=== PATIENT | male | born 1960 | race Caucasian/White ===

== ENCOUNTER 2018-01-05 00:49 | Emergency (ER) | payer OTHER, SELFPAY ==
[2018-01-05] MEDS ORDERED: HYDROcodone/Acetaminophen 10/325 mg Tablet ONE (01:12)
== END 2018-01-05 01:15 | disposition home or self-care (01) ==
LOC: MADERS 00:49
DX: S01.81XA Laceration without foreign body of other part of head, initial encounter (principal); R55 Syncope and collapse; Z87.891 Personal history of nicotine dependence; W17.89XA Other fall from one level to another, initial encounter
CPT/HCPCS: 12011

== ENCOUNTER 2018-10-04 14:33 | Outpatient (CLI) | payer OTHER ==
--- NOTE | 2018-10-04 15:17 | RAD ---
PA AND LATERAL CHEST: Date: 10/04/18 HISTORY: COPD. COMPARISON: 03/27/09. FINDINGS: Heart size is within normal limits. There are some atherosclerotic changes of the aorta. Lungs are cl ear of any infiltrative process. IMPRESSION: No active intrathoracic disease. POS: [facility]
[2018-10-04 15:23] LABS: #Basophils 0.1 thou/uL (0.0-0.2); #Eosinphils 0.1 thou/uL (0.0-0.7); #Lymphocytes 1.1 thou/uL (1.20-3.40); #Monocytes 0.4 thou/uL (0.11-0.59); %Basophils 2.7 % (0.0-1.0); %Eosinophils 2.4 % (0.0-10.0); %Neutrophils 62.8 % (42.0-75.0); Hemoglobin 13.1 g/dL (14.0-18.0); Mean Corpuscular HGB CONC 34.2 g/dL (32.0-36.0); Mean Corpuscular Hemoglobin 30.5 pg (27.0-31.0); Mean Corpuscular Volume 89.4 fL (78.0-98.0); Mean Platelet Volume 5.5 fL (7.4-10.4); Platelet Count 430 thou/uL (130-400); RBC Distribution Width 11.3 % (11.5-14.5); White Blood Cell (WBC) Count 4.8 thou/uL (4.8-10.8)
[2018-10-04 15:24] LABS: ALT (SGPT) 42 U/L (8-55); AST (SGOT) 33 U/L (5-34); Albumin 4.6 g/dL (3.5-5.0); Alkaline Phosphatase 141 U/L (40-150); Anion Gap 13 mmol/L (10-20); BUN (Urea Nitrogen) 8 mg/dL (8.4-25.7); Bilirubin, Total 0.6 mg/dL (0.2-1.2); Calc. Creatinine Clearance 0 mL/min (70-130); Calcium 9.6 mg/dL (7.8-10.44); Carbon Dioxide 26 mmol/L (22-29); Cardiac Risk 6.2 (Less than 4.5); Chloride 103 mmol/L (98-107); Cholesterol 229 mg/dl (< 200 Desired); Estimated GFR-MDRD 84; Globulin 3.5 g/dL (2.4-3.5); Glucose 114 mg/dL (70-105); HDL Cholesterol 37 mg/dL (>60 Neg Risk); LDL Cholesterol, Calculated 133 mg/dL; Potassium 4.1 mmol/L (3.5-5.1); Protein, Total 8.1 g/dL (6.0-8.3); Sodium 138 mmol/L (136-145); Triglycerides 297 mg/dL (Less than 150)
== END 2018-10-04 14:34 | disposition home or self-care (01) ==
LOC: MADLABBHPM 14:33 → EDSTATUS 14:35
PROVIDERS: ATTEND Family Medicine
DX: J44.1 Chronic obstructive pulmonary disease with (acute) exacerbation (principal); E78.2 Mixed hyperlipidemia
CPT/HCPCS: 36415; 71046; 80053; 80061; 84443; 85025

== ENCOUNTER 2018-10-13 09:09 | Outpatient (CLI) | payer OTHER ==
--- NOTE | 2018-10-13 11:16 | CT ---
POSTCONTRAST SOFT TISSUE NECK CT: Date 10/13/18 HISTORY: Left parotid mass. COMPARISON: None. FINDINGS: Visualized brain parenchyma and orbits are unremarkable. Adequate aeration of the visualized sinuses and mastoid air cells. Aerodigestive tract is patent. No mucosal abnormality. Epiglottis has a normal caliber. Preepiglottic fat is preserved. Midline fatty raphe of the tongue is preserved. No obvious masses in the oral cavi ty. Symmetric attenuation of the submandibular glands. Appropriate attenuation of the right parotid gland . There is a heterogeneously enhancing left intraparotid mass involving the superficial and deep lobe measuring 2.6 x 2.6 cm. Grossly, the great vessels of the neck are patent. Appropriate attenuation of the sternocleidomastoid muscles. Appropriate attenuation of the thyroid gland. Upper mediastinum and lung apices are unremarkable. No evidence of lymphadenopathy by size criteria. Straightening of the normal cervical lordosis is presumably positional. 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 Lesion appears to involve both the deep and superficial l obe. Heterogeneous enhancement with areas of cystic degeneration are suspected. 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 POS: [facility]
== END 2018-10-13 09:10 | disposition home or self-care (01) ==
LOC: MADCT 09:09
PROVIDERS: ATTEND Otolaryngology Otolaryngic Allergy
DX: D37.030 Neoplasm of uncertain behavior of the parotid salivary glands (principal)
CPT/HCPCS: 36415; 70491; 82565

== ENCOUNTER 2020-07-19 10:26 | Emergency (ER) | payer OTHER | END 2020-07-19 10:54 | disposition home or self-care (01) | LOC: MADERS 10:26 | DX: K40.90 Unilateral inguinal hernia, without obstruction or gangrene, not specified as recurrent (principal); Z87.891 Personal history of nicotine dependence | CPT/HCPCS: 99283 ==

== ENCOUNTER 2021-01-01 16:10 | Emergency (ER) | payer OTHER ==
[2021-01-01 17:44] LABS: #Basophils 0.2 thou/uL (0.0-0.2); #Eosinphils 0.1 thou/uL (0.0-0.7); #Lymphocytes 1.1 thou/uL (1.20-3.40); #Monocytes 1.1 thou/uL (0.11-0.59); #Neutrophils 10.5 thou/uL (1.40-6.50); %Basophils 1.5 % (0.0-1.0); %Eosinophils 0.9 % (0.0-10.0); %Lymphocytes 8.4 % (21.0-51.0); %Monocytes 8.4 % (0.0-10.0); %Neutrophils 80.8 % (42.0-75.0); Mean Corpuscular HGB CONC 33.2 g/dL (32.0-36.0); Mean Corpuscular Volume 93.4 fL (78.0-98.0); Mean Platelet Volume 5.5 fL (7.4-10.4); Platelet Count 462 thou/uL (130-400); RBC Distribution Width 11.1 % (11.5-14.5); Red Blood Cell (RBC) Count 4.52 mill/uL (4.70-6.10); White Blood Cell (WBC) Count 13.1 thou/uL (4.8-10.8)
[2021-01-01 17:58] LABS: ALT (SGPT) 17 U/L (8-55); AST (SGOT) 16 U/L (5-34); Albumin 4.5 g/dL (3.5-5.0); Alkaline Phosphatase 119 U/L (40-110); Anion Gap 13 mmol/L (10-20); BUN (Urea Nitrogen) 9 mg/dL (8.4-25.7); Bilirubin, Total 1.7 mg/dL (0.2-1.2); Calc. Creatinine Clearance 0 mL/min (70-130); Calcium 10.3 mg/dL (7.8-10.44); Carbon Dioxide 28 mmol/L (22-29); Chloride 97 mmol/L (98-107); Globulin 3.7 g/dL (2.4-3.5); Glucose 108 mg/dL (70-105); Potassium 4.1 mmol/L (3.5-5.1); Protein, Total 8.2 g/dL (6.0-8.3); Sodium 134 mmol/L (136-145)
[2021-01-01 19:02] LABS: Bilirubin Negative (Negative); Blood, Urine Trace (Negative); Clarity Clear (Clear); Glucose, Urine (Dipstick) Negative (Negative); Ketone, Urine Negative (Negative); Leukocyte Negative (Negative); Nitrite Negative (Negative); Protein, Urine (Dipstick) Negative (Neg-Trace); Specific Gravity, Urine 1.015 (1.005-1.030); Urobilinogen 0.2 mg/dL (Less than 2); pH, Urine 8.5 (5.0-9.0)
[2021-01-01 19:09] LABS: Bacteria/HPF Rare-Few HPF (None Seen); RBC/HPF 0-3 HPF (0-3); Squamous Epithelial None Seen HPF (0-3); WBC/HPF None Seen HPF (0-3)
== END 2021-01-01 20:37 | disposition home or self-care (01) ==
LOC: MADERS 16:10
DX: K57.20 Diverticulitis of large intestine with perforation and abscess without bleeding (principal); L02.214 Cutaneous abscess of groin; Z87.891 Personal history of nicotine dependence
CPT/HCPCS: 36415; 74177; 80053; 81003; 81015; 85025